=== PATIENT | female | born 1950 ===

== ENCOUNTER 2022-05-12 09:15 | Emergency (ER) | payer MEDICARE, OTHER ==
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
[2022-05-12 11:42] LABS: Bacteria,Urine 1+ /HPF (Negative); Mucus,Urine FEW /HPF
[2022-05-12 11:45] LABS: Amphetamine Screen,Urine Negative; Cannabinoid Screen,Urine Negative; Cocaine Screen,Urine Negative; Methadone Screen,Urine Negative; Opiate Screen,Urine Negative
[2022-05-12 11:59] LABS: Benzodiazepines Screen,Urine Positive
[2022-05-12 12:44] LABS: Color,Urine Straw (Yellow)
[2022-05-12 14:21] LABS: Basophils # (Auto) 0.1 K/mm3 (0.0-0.1); Basophils % (Auto) 0.7 % (0.0-1.8); Eosinophils # (Auto) 0.5 K/mm3 (0.0-0.4); Eosinophils % (Auto) 6.2 % (0.0-4.3); Hematocrit 38.2 % (30.3-42.9); Hemoglobin 12.3 gm/dl (10.1-14.3); Lymphocytes # (Auto) 2.3 K/mm3 (1.2-5.4); Lymphocytes % (Auto) 26.8 % (13.4-35.0); Mean Corpuscular HGB Conc 32 % (30-34); Mean Corpuscular Volume 93 fl (79-97); Monocytes # (Auto) 0.8 K/mm3 (0.0-0.8); Monocytes % (Auto) 9.2 % (0.0-7.3); Platelet Count 199 K/mm3 (140-440); Red Blood Count 4.11 M/mm3 (3.65-5.03)
[2022-05-12 14:51] LABS: Free T4 (Free Thyroxine) 1.13 ng/dL (0.76-1.46)
[2022-05-12 16:09] LABS: Alanine Aminotransferase 6 units/L (7-56); Albumin 3.9 g/dL (3.9-5); BUN/Creatinine Ratio 18; Blood Urea Nitrogen 16 mg/dL (7-17); Calcium 8.8 mg/dL (8.4-10.2); Hemolysis Index 25
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
[2022-05-14 09:29] VITALS: BP 116/87
== END 2022-05-14 17:13 ==
LOC: ED 09:15
DX: F23 Brief psychotic disorder (principal); Z20.822 Contact with and (suspected) exposure to COVID-19; Z79.899 Other long term (current) drug therapy
CPT/HCPCS: 36415; 80053; 80307; 81001; 84439; 84443; 85025; 99284; U0003; 80320; G0480